=== PATIENT | female | born 1980 | race Caucasian/White ===

== ENCOUNTER 2024-01-14 06:25 | Emergency (ER) | payer BC, SELFPAY ==
[2024-01-14] VITALS (11 sets, daily range): BP systolic 105–124; BP diastolic 74–78; PULSE 71–102; RESP 12–18; TEMP 36.7; O2SAT 97–100
--- NOTE | ~2024-01-14 | XR_ITS ---
Clinical Indication: Chest pain PA and lateral views of the chest: Comparison: None Findings: The lungs are clear, without evidence of focal consolidation or pleural effusion. Cardiome diastinal silhouette is within normal limits. Bones and soft tissues are unremarkable. Impression: Normal chest. Reviewed, dictated and finalized at location . Impression: Normal chest.
[2024-01-14] MEDS: IPRATROPIUM 0.5 MG/ALBUTEROL SULFATE 2.5 MG AMPUL.NEB 3 ML INHALATION (07:28)
--- NOTE | 2024-01-14 08:51 | ED.SOB ---
HPI - SOB/Dyspnea General Chief Complaint: Shortness of Breath/Dyspnea Stated Complaint: sob, rib pain Time Seen by Provider: 01/14/24 07:04 Source: patient Mode of arrival: ambulatory Limitations: no limitations History of Present Illness HPI Narrative: 43-year-old with a history of hypertension, asthma here with complaints of shortness of breath for past few days. Patient states that she has been using her inhalers with minimal relief. She denies any cough no history of fever or chills. Denies any trauma to the left side of the chest MD elicited complaint: shortness of breath Pertinent past history: asthma Onset (ago): day(s) (3) Timing: constant Exacerbating factors: nothing Relieving factors: nothing Known history of: asthma Associated symptoms: denies other symptoms Related Data Allergies Allergy/AdvReac Type Severity Reaction Status Date / Time No Known Allergies Allergy Verified 01/14/24 06:37 Exam Narrative: GENERAL: Well-appearing, well-nourished, and in no acute distress. HEAD: Normocephalic, atraumatic. EYES: PERRLA and EOMI. ENT: Nares clear, no rhinorrhea or epistaxis. Mucous membranes moist. NECK: Supple. CHEST: Mild bilateral wheeze. No respiratory distress. HEART: Regular rate and rhythm. No murmur heard. Normal peripheral pulses. ABDOMEN: Soft, nontender, nondistended, normal active bowel sounds. EXTREMITIES: Normal range of motion. No edema. SKIN: Warm, dry, no rash. NEURO: No focal deficits. Alert and oriented x3. PSYCH: Normal mood and affect. Course Course Emergency Course: Patient feeling slightly better after the neb treatment. Informed her about the chest x-ray findings we did recommended her to take steroids and continue inhalers. Vital Signs Vital signs: Vital Signs Temperature 36.7 C 01/14/24 06:31 Pulse Rate 102 H 01/14/24 06:31 Respiratory Rate 16 01/14/24 06:31 Blood Pressure 124/74 01/14/24 06:31 Pulse Oximetry 97 01/14/24 06:31 Oxygen Delivery Room Air 01/14/24 06:31 Temperature 36.7 C 01/14/24 06:31 Pulse Rate 82 01/14/24 08:00 Respiratory Rate 12 01/14/24 08:00 Blood Pressure 111/76 01/14/24 08:00 Pulse Oximetry 100 05/31/24 06:44 Oxygen Delivery Room Air 01/14/24 06:44 MDM - SOB/Dyspnea Imaging Data Radiologist's impression: ITS Impressions Chest X-Ray 01/14/24 07:01 Impression: Normal chest. Discharge Plan Discharge Clinical Impression: Asthma attack, Chest pain, non-cardiac Patient Disposition: Home, Self-Care Condition: Stable Instructions: Asthma (ED) Additional Instructions: Continue home medications, follow-up with your primary doctor take steroids as prescribed Prescriptions: New prednisone 20 mg tablet 20 mg PO BID Qty: 10 0RF naproxen sodium [Anaprox DS] 550 mg tablet 550 mg PO Q12H PRN (Reason: pain) Qty: 14 0RF Follow-up/Referrals: UNKNOWN,DOCTOR [Primary Care Provider] - Anup Crespo MD [Physician] - Time of Disposition: 08:59
--- NOTE | 2024-01-14 09:28 | PC.NURSE ---
Addendum entered by Mahi Otto RN 01/14/24 09:41: Unable to schedule ride thru [employer] ride. Care Coordination notified and will assist pt with a ride home. Original Note: [employer] ride called for pt.
== END 2024-01-14 09:12 | disposition home or self-care (01) ==
PROVIDERS: Emergency Provider Family Medicine
DX: J45.901 Unspecified asthma with (acute) exacerbation (principal); R07.89 Other chest pain
CPT/HCPCS: 71046; 94640; 99284

== ENCOUNTER 2024-03-10 01:31 | Emergency (ER) | payer BC, SELFPAY ==
[2024-03-10] VITALS (8 sets, daily range): BP systolic 100–115; BP diastolic 74–82; PULSE 61–99; RESP 14–20; TEMP 36.9; O2SAT 97–100
--- NOTE | ~2024-03-10 | XR_ITS ---
EXAMINATION: XR chest 2V DATE: 03/10/2024 03:55 INDICATION: Syncope TECHNIQUE: frontal and lateral views of the chest were obtained. COMPARISON: Chest radiograph dated 01/14/2024 FINDINGS: The lungs are clear with no focal airspace opacities, pulmonary edema, pleural effusion or pneumothor ax. Heart size is normal however there is suggestion of mild pulmonary vascular congestion. Mild S-sh aped curvature of the thoracic spine with mild spondylosis. Chronic mild anterior wedging with verteb ral bodies at the thoracolumbar junction. IMPRESSION: 1. Mild vascular congestion without kevin pulmonary edema. Reviewed, dictated and finalized at location A.
--- NOTE | 2024-03-10 01:48 | ECG_ITS ---
Test Date: 2024-03-10 01:58:15 Measurements Intervals [place] Rate: 78 P: 62 UT: 162 QRS: 33 QRSD: 91 T: 65 QT: 391 QTc: 448 Interpretive Statements SINUS RHYTHM BASELINE ARTIFACT- I, II, AVR, AVL NORMAL ECG No previous ECG available for comparison Electronically Signed On 03-10-2024 06:23:39 CDT by Edmar Jimenez D.O.
--- NOTE | 2024-03-10 02:11 | ED.SYNCOPE ---
HPI - Syncope General Chief Complaint: Syncope Stated Complaint: syncope Time Seen by Provider: 03/10/24 02:10 Source: patient and family ( Kev) Mode of arrival: ambulatory Limitations: no limitations History of Present Illness HPI narrative: Patient presents after a syncopal episode once earlier today. She had felt near syncopal at other points all day. She recently had an ear infection and was prescribed antibiotics. She states this has happened before but she was never evaluated. She was walking up steps when she lost muscle tone and consciousness, striking her head. Loss of consciousness approximately 25-30seconds. Not on anticoagulation. No seizures. No vomiting. Remembers preparing to walk up steps. She did have mild SOB but notes she has this at baseline in the setting of her asthma. She has a history of HTN and states she is on medications for this: spironolactone and furosemide (but denies history of CHF); says she is on them for edema. Related Data Allergies Allergy/AdvReac Type Severity Reaction Status Date / Time No Known Allergies Allergy Verified 01/14/24 06:37 [facility] Past Medical History Medical History Asthma Edema HTN (hypertension) Surgical History Surgical History (Updated 03/10/24 @ 05:05 by Yeny Mesa MD) H/O: hysterectomy Social History Social History (Updated 03/12/24 @ 22:18 by Yeny Mesa MD) Smoking status: Current every day smoker Living arrangements: with family Additional living arrangements comments: , Kev Bernal Exam Narrative: GENERAL: Well-appearing, well-nourished, and in no acute distress. HEAD: Normocephalic, atraumatic. EYES: Non injected, non icteric. No raccoon eyes ENT: Nares clear, no rhinorrhea or epistaxis. Tacky mucous membranes NECK: Supple. CHEST: Speaking in full sentences. No respiratory distress. Bilateral wheezes on auscultation. HEART: Regular rate and rhythm. . ABDOMEN: Soft, nondistended. EXTREMITIES: Normal range of motion. No lower extremity edema. SKIN: Warm, dry, no rash. NEURO: No focal deficits. Alert and oriented x3. PSYCH: Normal mood and affect. Course Vital Signs Vital signs: Vital Signs Temperature 98.5 F 03/10/24 01:40 Pulse Rate 90 03/10/24 01:40 Respiratory Rate 20 03/10/24 01:40 Blood Pressure 113/77 03/10/24 01:40 Pulse Oximetry 100 03/10/24 01:40 Oxygen Delivery Room Air 03/10/24 01:40 Temperature 98.5 F 03/10/24 01:40 Pulse Rate 70 03/10/24 05:23 Respiratory Rate 14 03/10/24 05:23 Blood Pressure 115/78 03/10/24 05:23 Pulse Oximetry 97 03/10/24 05:23 Oxygen Delivery Room Air 03/10/24 01:40 MDM - Syncope MDM Narrative Medical decision making narrative: Patient presents after a syncopal episodes that involved a recent position change, getting out of bed and going up steps. She lost consciousnes and muscle tone briefly with return to baseline after. In the ED she is afebrile with VS within normal limits. Mild leukocytosis and elevated hemoglobin and hematocrit. I suspect these are secondary to a degree of hemoconcentration in the setting of mild dehydration. Her orthostatics vital signs are fine though she does become symptomatic during it. IV fluids ordered. CT not indicated per [place] CT head rule; discussed with patient who verifies understanding and concurs. [place] syncope rule not completely applicable and she does indicate mild shortness of breath though has a history of asthma with wheezes on exam. Will treat and reassess. Patient has a history of a hysterectomy thus will not wait for test. Reevaluated and feeling better. Seen ambulating around the department and does so with a steady gait. Lungs are clear to auscultation at this time. Stable for discharge with outpatient follow up. Differential Diagnosis Differential diagnosis: Likely syncope due to ortho
[2024-03-10 02:43] LABS: Basophils Percent Auto 0.4 % (0.2-1.2); Eosinophils Absolute Auto 0.7 K/mm3 (0-0.3); Eosinophils Percent Auto 6.4 % (0-4.4); Hematocrit 47.1 % (37.0-47.0); Hemoglobin 15.6 g/dL (12.0-15.0); Immature Granulocyte Absolute 0.04 K/mm3 (0.00-0.031); Immature Granulocyte Percent A 0.4 % (0-0.5); Lymphocytes Absolute Auto 2.45 K/mm3 (0.9-3.2); Lymphocytes Percent Auto 23.7 % (18.3-44.2); Mean Corpuscular HGB Conc 33.1 g/dl (32-36); Mean Corpuscular Hemoglobin 30.5 pg (26-34); Mean Platelet Volume 10.4 fl (7.4-10.4); Monocytes Absolute Auto 0.6 K/mm3 (0.1-0.6); Monocytes Percent Auto 5.8 % (2.6-8.5); Neutrophils Absolute Auto 6.6 K/mm3 (1.3-6.7); Neutrophils Percent Auto 63.3 % (45.5-73.1); Platelet Count Result 357 k/mm3 (150-375); Red Blood Count 5.12 M/mm3 (4.2-5.4); Red Cell Distribution Width 13.3 % (11.5-14.5); White Blood Count 10.4 K/mm3 (4.5-10.0)
[2024-03-10 03:00] LABS: Alanine Aminotransferase 19 U/L (6-35); Albumin Level 4.6 g/dL (3.5-5.1); Alkaline Phosphatase 90 U/L (38-126); Anion Gap 11 mmol/L (4-12); Aspartate Amino Transferase 26 U/L (14-36); Bilirubin,Total 0.5 mg/dL (0.2-1.3); Blood Urea Nitrogen 11 mg/dL (7-17); Calcium 9.9 mg/dL (8.4-10.2); Carbon Dioxide 28 mmol/L (22-30); Chloride 100 mmol/L (98-107); Estimated CRCL calculation 84 ml/min; Estimated Glomerular Filt Rate > 60; Glucose 123 mg/dL (65-110); Potassium 4.4 mmol/L (3.4-5.0); Sodium 139 mmol/L (137-145)
[2024-03-10] MEDS: IPRATROPIUM 0.5 MG/ALBUTEROL SULFATE 2.5 MG AMPUL.NEB 3 ML INHALATION (03:20)
[2024-03-10] MEDS: predniSONE 20 MG TABLET 40 MG PO (03:22)
[2024-03-10] MEDS: SODIUM CHLORIDE 0.9% IV 1,000 ML 999 ML IV CONT (03:22)
[2024-03-10 03:26] LABS: Magnesium 1.7 mg/dL (1.6-2.3)
[2024-03-10 03:31] LABS: NT Pro B Type Natriuretic Pept < 20 pg/mL (19.9-100)
[2024-03-10 03:33] LABS: Troponin I < 0.012 ng/mL (0.000-0.034)
[2024-03-10 04:15] LABS: Influenza A QL RT-PCR Negative (Negative); Influenza B QL RT-PCR Negative (Negative); RSV RNA, RT-PCR Negative (Negative); SARS-CoV-2 RNA PCR Negative (Negative)
== END 2024-03-10 05:27 | disposition home or self-care (01) ==
PROVIDERS: Physician Assistant; Emergency Provider Student in an Organized Health Care Education/Training Program
DX: J45.901 Unspecified asthma with (acute) exacerbation (principal); R55 Syncope and collapse; Z20.822 Contact with and (suspected) exposure to COVID-19; I10 Essential (primary) hypertension; F17.200 Nicotine dependence, unspecified, uncomplicated
CPT/HCPCS: 36415; 71046; 80053; 83735; 83880; 84484; 85025; 87637; 93005; 94640; 96360; 99284; J7030; J7512